=== PATIENT | male | born 1965 | race Caucasian/White ===

== ENCOUNTER 2021-06-12 02:21 | Day surgery (SDC) | payer OTHER, SELFPAY ==
[2021-05-29 09:26] VITALS: BMI 26.5
[2021-06-12 08:07] VITALS: BP 148/91; PULSE 61; RESP 17; TEMP 36.6; O2SAT 100; BMI 27.8
[2021-06-12] MEDS: LACTATED RINGERS 1,000 ML 150 ML IV CONT (08:11)
--- NOTE | 2021-06-12 08:13 | PM.HPGS ---
History of Present Illness History of Present Illness Consent: Risks, benefits, and alternatives have been discussed and questions answered. Patient agrees to proceed with procedure. Chief complaint: francis's esophagus Narrative: Nehemiah Kramer Meng, Jr. is a 56 year old male Who was found to have a short segment of Francis's esophagus 3 years ago. At times when eating a sandwich, he will feels though that the food does not go down and he will need to take a drink of water to help when something is stuck. He also has a painful sensation when this happens, as though he is having a spasm in his esophagus Review of Systems Review of Systems: All systems reviewed & are unremarkable except as noted in HPI and below PMFSH Past Medical History Medical History Barretts esophagus GERD (gastroesophageal reflux disease) Peyronie's disease Family History Family History Father Hypertension Patient's father is in good health Cerebrovascular accident Family history of premature coronary heart disease Sibling Patient's brother is in good health Mother Family history of premature coronary heart disease, Onset Age: 69 Social History Social History Social History: Smoking status: Never smoker Second hand tobacco smoke exposure: No Alcohol intake: current Drinks per week: 4 Substance use: never Substance use type: does not use Living arrangements: with family Additional living arrangements comments: lives with spouse Gender identity (if verbalized by the patient): Male Sexual Orientation (if Verbalized by the Patient): Straight or Heterosexual Spiritual care concerns: No Meds Home Medications and Allergies Home Medications Medication Instructions Recorded Confirmed Type melatonin 10 mg tablet 10 mg PO DAILY 07/17/19 06/12/21 History multivitamin 1 tablet PO DAILY 07/17/19 06/12/21 History pantoprazole 20 mg tablet,delayed 20 mg PO Q12H #180 tablet 03/12/21 06/12/21 Rx release Allergies Allergy/AdvReac Type Severity Reaction Status Date / Time No Known Allergies Allergy Mild Verified 06/12/21 08:06 Vital Signs Vital Signs - 24 hr 06/12/21 08:07 Temperature 36.6 C Pulse Rate 61 Respiratory Rate 17 Blood Pressure 148/91 H Pulse Oximetry 100 Exam Resp: Auscultation: clear to auscultation bilaterally Cardio: Rate: regular rate Rhythm: regular rhythm GI: GI Palp: Yes Soft to palpation and No Tenderness to palpation present (GI) Assessment and Plan Assessment and plan (1) Barretts esophagus: Code(s): K22.70 - Francis's esophagus without dysplasia Status: Acute Assessment and Plan: EGD with possible biopsy or dilatation or cautery.
--- NOTE | 2021-06-12 08:27 | WPDANESEPPF ---
Anes - Initial Pre Proc Eval Procedure: Operation Date: 06/12/21 09:00 Proposed Procedures p Esophagogastroduodenoscopy - Donaldo Laguerre MD Date/Time: 06/12/21 08:27 Surgeon: Donaldo Laguerre MD Pre Op Diagnosis: francis's esophagus Patient Data Age: 56 Gender: M Height: 1.78 m Weight: 87.8 kg Last Vital Signs Temp 36.6 C 06/12/21 08:07 Pulse 61 06/12/21 08:07 Resp 17 06/12/21 08:07 BP 148/91 H 06/12/21 08:07 Pulse Ox 100 06/12/21 08:07 Allergies Allergy/AdvReac Type Severity Reaction Status Date / Time No Known Allergies Allergy Mild Verified 06/12/21 08:06 Home Medications Medication Instructions Recorded Confirmed Type melatonin 10 mg tablet 10 mg PO DAILY 07/17/19 06/12/21 History multivitamin 1 tablet PO DAILY 07/17/19 06/12/21 History pantoprazole 20 mg tablet,delayed 20 mg PO Q12H #180 tablet 03/12/21 06/12/21 Rx release Patient hx anesthesia problems: none Family hx anesthesia problems: none Results Review: All pre-operative results and documents have been reviewed as part of the pre-operative evaluation. [facility] Past Medical History Medical History Barretts esophagus GERD (gastroesophageal reflux disease) Peyronie's disease Family History Family History Father Hypertension Patient's father is in good health Cerebrovascular accident Family history of premature coronary heart disease Sibling Patient's brother is in good health Mother Family history of premature coronary heart disease, Onset Age: 69 Social History Social History Social History: Smoking status: Never smoker Second hand tobacco smoke exposure: No Alcohol intake: current Drinks per week: 4 Substance use: never Substance use type: does not use Living arrangements: with family Additional living arrangements comments: lives with spouse Gender identity (if verbalized by the patient): Male Sexual Orientation (if Verbalized by the Patient): Straight or Heterosexual Spiritual care concerns: No Anes - Eval Final PreProcedure Day of Procedure 06/12/21 08:27 Patient weight: normal Heart: regular rate and rhythm Lungs: clear to auscultation Airway: Mallampati scale class II Neurological: alert and oriented Last oral intake: >/= 8 hours ASA classification: II Emergent: no Anesthetic plan: proceed Anesthesia type and monitoring: general GIVS and standard monitoring Results Review: All pre-operative results and documents have been reviewed as part of the pre-operative evaluation. Informed Consent: The patient's anesthetic plan and its attendant risks and benefits were discussed with the patient/family/POA. Questions were solicited and answers provided to the satisfaction of the patient/family/POA.
[2021-06-12 09:00] VITALS: BP 108/64; PULSE 60; RESP 15; O2SAT 97
[2021-06-12 09:10] VITALS: BP 117/70; PULSE 67; RESP 16; O2SAT 98
[2021-06-12 09:20] VITALS: BP 130/68; PULSE 69; RESP 16; O2SAT 100
--- NOTE | 2021-06-12 09:46 | SUR.PHASEII ---
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
== END 2021-06-12 09:55 | disposition home or self-care (01) ==
PROVIDERS: PCP Family Medicine; Visit Provider Internal Medicine Gastroenterology
PROC: 0DJ08ZZ Inspection of Upper Intestinal Tract, Via Natural or Artificial Opening Endoscopic (ICD-10-PCS; CPT 43235; principal; 2021-06-12 09:00)
DX: K22.2 Esophageal obstruction (principal); K21.00 Gastro-esophageal reflux disease with esophagitis, without bleeding; Z87.19 Personal history of other diseases of the digestive system
CPT/HCPCS: 43249; 88305; 88313; C1726; J2704; J7120

== ENCOUNTER 2023-10-08 06:46 | Day surgery (SDC) | payer OTHER, SELFPAY ==
[2023-09-16 11:29] VITALS: BMI 26.6
--- NOTE | 2023-10-06 14:29 | SUR.PREOP ---
Patient called regarding upcoming procedure. Reviewed preop instructions, appointment times, and procedure prep.
--- NOTE | 2023-10-07 13:59 | P.HP_ITS ---
History of Present Illness History of Present Illness Consent: Risks, benefits, and alternatives have been discussed and questions answered. Patient agrees to proceed with procedure. Chief complaint: History colon polyps Narrative: Nehemiah Kramer Meng, Jr. is a 58 year old male Referred for colon cancer screening. 5 years ago I removed a couple of polyps at least 1 of which was a tubular adenoma. Review of Systems Review of Systems: All systems reviewed & are unremarkable except as noted in HPI and below PMFSH Past Medical History Medical History Barretts esophagus GERD (gastroesophageal reflux disease) Peyronie's disease Family History Family History Father Hypertension Patient's father is in good health Cerebrovascular accident Family history of premature coronary heart disease Carcinoma of colon Sibling Patient's brother is in good health Mother Family history of premature coronary heart disease, Onset Age: 69 Social History Social History Social History: Smoking status: Never smoker Second hand tobacco smoke exposure: No Alcohol intake: current Drinks per week: 2 Substance use: never Substance use type: does not use Do You Feel Safe in your Home?: Yes Lack of Transportation: No Lack of Food: Never True Current Housing: I Have Housing Concerned About Future Housing: No Difficulty Paying Gas/Electric Bills: No Difficulty Paying for Meds: No Currently Unemployed: No Education: Don't Know Difficulty w/ Childcare or Family Care: No Living arrangements: with family Additional living arrangements comments: lives with spouse 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 Gender identity (if verbalized by the patient): Male Sexual Orientation (if Verbalized by the Patient): Straight or Heterosexual Spiritual care concerns: No Meds Home Medications and Allergies Home Medications Medication Instructions Recorded Confirmed Type melatonin 10 mg tablet 10 mg PO DAILY 07/17/19 09/21/23 History multivitamin 1 tablet PO DAILY 07/17/19 09/21/23 History famotidine 20 mg tablet 20 mg PO BID #180 tabs 09/21/23 10/08/23 Rx Allergies Allergy/AdvReac Type Severity Reaction Status Date / Time No Known Allergies Allergy Mild Verified 10/08/23 11:24 Exam Resp: Auscultation: clear to auscultation bilaterally Cardio: Rate: regular rate Rhythm: regular rhythm GI: GI Palp: Yes Soft to palpation and No Tenderness to palpation present (GI) Assessment and Plan Assessment and plan (1) Colon cancer screening: Code(s): Z12.11 - Encounter for screening for malignant neoplasm of colon Status: Acute Assessment and Plan: Colonoscopy with possible biopsy or polypectomy or cautery or injection of substances.
[2023-10-08 11:25] VITALS: BP 149/83; PULSE 59; RESP 20; TEMP 36.2; O2SAT 99; BMI 28.7
[2023-10-08] MEDS: LACTATED RINGERS 1,000 ML 150 ML IV CONT (11:33)
--- NOTE | 2023-10-08 11:40 | WPDANESEPPF ---
Anes - Initial Pre Proc Eval Procedure: Operation Date: 10/08/23 12:30 Proposed Procedures p Colonoscopy - Donaldo Laguerre MD Date/Time: 10/08/23 11:40 Surgeon: Donaldo Laguerre MD Pre Op Diagnosis: History colon polyps Patient Data Age: 58 Gender: M Height: 1.75 m Weight: 88.2 kg Last Vital Signs Temp 97.2 F L 10/08/23 11:25 Pulse 59 L 10/08/23 11:25 Resp 20 10/08/23 11:25 BP 149/83 H 10/08/23 11:25 Pulse Ox 99 10/08/23 11:25 O2 Del Method Room Air 10/08/23 11:25 Allergies Allergy/AdvReac Type Severity Reaction Status Date / Time No Known Allergies Allergy Mild Verified 10/08/23 11:24 Home Medications Medication Instructions Recorded Confirmed Type melatonin 10 mg tablet 10 mg PO DAILY 07/17/19 09/21/23 History multivitamin 1 tablet PO DAILY 07/17/19 09/21/23 History famotidine 20 mg tablet 20 mg PO BID #180 tabs 09/21/23 10/08/23 Rx Patient hx anesthesia problems: none Family hx anesthesia problems: none Results Review: All pre-operative results and documents have been reviewed as part of the pre-operative evaluation. [facility] Past Medical History Medical History Barretts esophagus GERD (gastroesophageal reflux disease) Peyronie's disease Family History Family History Father Hypertension Patient's father is in good health Cerebrovascular accident Family history of premature coronary heart disease Carcinoma of colon Sibling Patient's brother is in good health Mother Family history of premature coronary heart disease, Onset Age: 69 Social History Social History Social History: Smoking status: Never smoker Second hand tobacco smoke exposure: No Alcohol intake: current Drinks per week: 2 Substance use: never Substance use type: does not use Do You Feel Safe in your Home?: Yes Lack of Transportation: No Lack of Food: Never True Current Housing: I Have Housing Concerned About Future Housing: No Difficulty Paying Gas/Electric Bills: No Difficulty Paying for Meds: No Currently Unemployed: No Education: Don't Know Difficulty w/ Childcare or Family Care: No Living arrangements: with family Additional living arrangements comments: lives with spouse Occupation/Education: occupation 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 Gender identity (if verbalized by the patient): Male Sexual Orientation (if Verbalized by the Patient): Straight or Heterosexual Spiritual care concerns: No Anes - Eval Final PreProcedure Day of Procedure 10/08/23 11:40 Patient weight: normal Heart: regular rate and rhythm Lungs: clear to auscultation Airway: Mallampati scale class II Neurological: alert and oriented Last oral intake: >/= 8 hours ASA classification: II Emergent: no Anesthetic plan: proceed Anesthesia type and monitoring: general GIVS and standard monitoring Results Review: All pre-operative results and documents have been reviewed as part of the pre-operative evaluation. Informed Consent: The patient's anesthetic plan and its attendant risks and benefits were discussed with the patient/family/POA. Questions were solicited and answers provided to the satisfaction of the patient/family/POA.
[2023-10-08 12:03] VITALS: BP 114/69; PULSE 57; RESP 16; O2SAT 99
[2023-10-08 12:13] VITALS: BP 110/76; PULSE 57; RESP 21; O2SAT 99
[2023-10-08 12:23] VITALS: BP 121/66; PULSE 55; RESP 15; O2SAT 99
== END 2023-10-08 13:05 | disposition home or self-care (01) ==
PROVIDERS: PCP Family Medicine; Visit Provider Internal Medicine Gastroenterology
PROC: 0DJD8ZZ Inspection of Lower Intestinal Tract, Via Natural or Artificial Opening Endoscopic (ICD-10-PCS; CPT 45378; principal; 2023-10-08 12:30)
DX: Z12.11 Encounter for screening for malignant neoplasm of colon (principal); D12.4 Benign neoplasm of descending colon; D12.0 Benign neoplasm of cecum; K21.9 Gastro-esophageal reflux disease without esophagitis; N48.6 Induration penis plastica
CPT/HCPCS: 45385; 88305; J2704; J7120

== ENCOUNTER 2024-10-19 02:34 | Day surgery (SDC) | payer OTHER, SELFPAY ==
[2024-09-25 11:07] VITALS: BMI 25.4
--- OUTSIDE RECORDS SUMMARY | 2024-10-11 00:38 | XMS_ITS | Continuity of Care Document ---
Author Organization [facility] Address [address] [facility] [address] [place] [address] Phone Care Team Providers Care Software Installer Name Role Phone Ruddyradhamesjhonatan Jose Manuel Unavailable Unavailable Procedures Procedure Date Eye Exam Established Pt Advance Directives Directive Yes / No Effective Date File Name No Information Encounters Encounter Description Practice Location Reason(s) For Visit Diagnoses Date Provider Providers Copied on Encounter [facility], [address], [place], [place], [id number], [place] tel:[phone] [facility] No Information [address] Jose Manuel. [address] [facility] [address], [place], [address], [place]. tel:[phone] Family History Family Member Type Diagnosis Age At Onset No Information Payers Payer name Insurance type Covered libertarian ID Authorcurtisa ilyamohsen(s) [facility] CI [id number] Social History Type Description Quantity Date Captured Comments Sex Male Smoking Status No Information Chief Complaint And Reason For Visit No Information Reason For Referral Reason For Referral No Information History Of Present Illness Encounter Date Complaint History Of Prese nt Illness No Information Functional Status Date Functional Assessmen t No Information Instructions Date Instruction Additional Infor mation No Information Assessments Type Assessment Date No Information Patient Care Teams Name Effective Dates (start - stop) Status Members No Information
--- OUTSIDE RECORDS SUMMARY | 2024-10-11 00:38 | XMS_ITS | Patient Health Summary ---
Author Organization [facility] Address [address] [place] [address] Care Team Providers Care Emergency Care Attendant Name Role Phone Unavailable Primary Care Provider Unavailabl e Note from [facility],non-owned Affiliates and Associated Physician Practices is amultiple site organization consisting of ambulatory clinics and hospital sitesin [place], [place], [place] and [place]. This disclosure is being madepursuant to the Care Everywhere program and may not contain all information available regarding this patient. Last updated 18.[facility] Allergies No known active allergies Medications Be aware that medications may not be up to date on this document. Always verify current medications with the patient. No known medications Active Problems No known active problems Immunizations * FLU VACCINE QUAD IIV4 PF ID(Given 08/04/2016) * INFLUENZA VACCINE, QUADR. (FLUZONE; FLULAVAL; FLUARIX; AFLURIA QUADRIVALENT; 6MO+), 0.5 ML (IIV4)(Given 05/30/2020, 07/05/2019) * iNFLUENZA VACCINE, RECOM-BREWER, QUADR. (FLUBLOCK QUADRIVALENT; 18Y+) (RIV4)(Given 07/04/2018) Social History Tobacco Use Types Packs/Day Years Used Date Smoking Tobacco: Never Assessed Sex and Gender Information Value Date Recorded Sex Assigned at Not on file Gender Identity Not on file Sexual Orientation Not on file
--- OUTSIDE RECORDS SUMMARY | 2024-10-11 00:38 | XMS_ITS | Referral Summary ---
Author Organization [facility] [employer] Address [address] [place] [address] Care Team Providers Care Remote Sensing Technologist Name Role Phone Unavailable Primary Care Provider Unavailabl e Source Comments [facility],non-owned Affiliates and Associated Physician Practices is amultiple site organization consisting of ambulatory clinics and hospital sitesin [place], [place], [place] and [place]. This disclosure is being madepursuant to the Care Everywhere program and may not contain all information available regarding this patient. Last updated 18.[facility] [employer] Allergies No known active allergies Medications Be aware that medications may not be up to date on this document. Always verify current medications with the patient. No known medications Active Problems No known active problems Immunizations Name Administration Dates Next Due FLU VACCINE QUAD IIV4 PF ID 08/04/2016 INFLUENZA VACCINE, QUADR. (F LUZONE; FLULAVAL; FLUARIX; AFLURIA QUADRIVALENT; 6MO+), 0.5 ML (IIV4) 05/30/2020,07/05/2019 iNFLUENZA VACCINE, RECOM-BREWER, QUADR. (FLUBLOCK QUADRIVALENT; 18Y+) (RIV4) 07/04/2018 Social History Tobacco Use Types Packs/Day Years Used Date Smoking Tobacco: Never Assessed Sex and Gender Information Value Date Recorded Sex Assigned at Not on file Gender Identity Not on file Sexual Orientation Not on file Plan of Treatment Not on file
--- OUTSIDE RECORDS SUMMARY | 2024-10-11 00:38 | XMS_ITS | Clinical Summary ---
Author Organization [facility] Address [address] [place] [address] Care Team Providers Care Cashiers Bussers Food Runners Name Role Phone Unavailable Primary Care Provider Unavailabl e Source Comments [facility],non-owned Affiliates and Associated Physician Practices is amultiple site organization consisting of ambulatory clinics and hospital sitesin [place], [place], [place] and [place]. This disclosure is being madepursuant to the Care Everywhere program and may not contain all information available regarding this patient. Last updated 18.[facility] Allergies No known active allergies Medications Be [...] Orientation Not on file Plan of Treatment Health Maintenance Due Date Last Done Comments COLOGUARD (AGES 45-75) - COLON CA SCREENING 1964 COLON MONITORING 1964 COLONOSCOPY - COLON CA SCREENING 1964 CT COLONOGRAPHY - COLON CA SCREENING 1964 Colorectal Cancer Screening 1964 FIT - COLON CA SCREENING 1964 FLEX SIG - COLON CA SCREENING 1964 LIPID TESTING 1964 HIV SCREENING 1979 HEPATITIS C SCREENING 04/21/1982 DTAP/TDAP/TD VACCINES (1 - Tdap) 1983 PNEUMOCOCCAL VACCINE 50+ (1 of 1 - PCV) 2014 ZOSTER VACCINE (1 of 2) 2014 COVID-19 VACCINE (1 - 2023- season) 2024 INFLUENZA VACCINE (#1) 2024 , 07/05/2019, 07/04/2018, Additional history exists DEPRESSION SCREENING 08/23/2024 Respiratory Syncytial Virus (RSV) Vaccine Pt: or over 60 yrs (1 - 1-dose 75+ series) 2039 HEPATITIS B VACCINE Aged Out No longe r eligible based on patient's age to complete this topic HIB VACCINE Aged Out No longer eligi ble based on patient's age to complete this topic HPV VACCINE Aged Out No longer eligi ble based on patient's age to complete this topic MENINGOCOCCAL (Group B) VACCINE Aged Out No longer eligible based on patient's age to complete this topic MENINGOCOCCAL VACCINE Aged Out No naman aram eligible based on patient's age to complete this topic PNEUMOCOCCAL VACCINE Aged Out No long er eligible based on patient's age to complete this topic
--- OUTSIDE RECORDS SUMMARY | 2024-10-19 02:39 | XMS_ITS | Encounter Summary ---
Author Organization [facility] Address [address] [place] [address] Phone Care Team Providers Care Pharmaceutical Process Engineer Name Role Phone Tyra Lou MD Primary Care Provider Encounter Details Date Type Department Care Team (Late st Contact Info) Description 10/26/2019 Telephone [facility] Cardiology [facility] Advanced Medicine 8th [place] [address] [place] [address] Nando Gilman MD [address] [address] [address] [place] [address] Social History Tobacco Use Types Packs/Day Years Used Date Smoking Tobacco: Never Smokeless Tobacco: Never Alcohol Use Standard Drinks/Week Comments Yes 0 (1 standard drink = 0.6 oz pur e alcohol) Sex and Gender Information Value Date Recorded Sex Assigned at Not on file Legal Sex Male 2:39 AM 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
--- OUTSIDE RECORDS SUMMARY | 2024-10-19 02:39 | XMS_ITS | Patient Health Summary ---
Author Organization [facility] [employer] Address [address] [place] [place] [address] Care Team Providers Care Operations/Dispatch Name Role Phone Unavailable Primary Care Provider Unavailabl e Note from [facility],non-owned Affiliates and Associated Physician Practices is amultiple site organization consisting of ambulatory clinics and hospital sitesin [place], [place], [place] and [place]. This disclosure is being madepursuant to the Care Everywhere program and may not contain all information available regarding this patient. Last updated 18.[facility] [employer] Allergies No known active allergies Medications Be [...]
--- OUTSIDE RECORDS SUMMARY | 2024-10-19 02:39 | XMS_ITS | Clinical Summary ---
Author Organization [facility] Address [address] [place] [id number] Care Team Providers Care Flame Hardener Name Role Phone Tyra Lou MD Primary Care Provider Allergies No known active allergies Medications pantoprazole DR (PROTONIX) 40 mg EC tablet Take 20 mg by mouth 2 (two) times a day Active cholecalciferol (VITAMIN D-3) 2,000 unit capsule Take 1,000 Units by mouth daily Active ciclopirox (LOPROX) 0.77 % cream GENTLY MASSAGE INTO AFFECTED NAILS AND SURROUNDING SKIN EVERY DAY 90 g 3 0 Active Additional Information Patient not taking.Reported on 09/29/2021 terbinafine (LamiSIL) 250 mg tablet TAKE 1 TABLET BY MOUTH DAILY 30 tablet 1 Active Additional Information Patient not taking.Reported on 09/29/2021 multivitamin tabletIndicatio ns:Vitamin Deficiency Prevention Take 1 tablet by mouth Active ketoconazole (NIZORAL) 2 % cream Apply to left 4th, 5th interdigital space and 2nd toenail BID 60 g 3 3 Active thymol, bulk, crystals Apply to left 2nd toenail qd 60 g 2 3 Active Active Problems Problem Noted Date Diagnosed Date Pain of foot 08/06/2017 Painful legs and moving toes 06/24/2017 Surgical follow-up care 09/26/2012 Tinea pedis 09/13/2012 Onychomycosis 08/25/2012 Skin benign neoplasm 08/25/2012 Skin infection, bacterial 08/25/2012 Skin neoplasm 08/25/2012 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 Induratio penis plastica 07/02/2010 Osteoarthritis of shoulder 07/10/2009 Surgical History Surgery Date Site/Laterality Comments SHOULDER SURGERY Medical History Medical History Date Comments Encounter for removal of sutures Encounter for removal of sutures - (Added by TW Conv) GERD (gastroesophageal reflux disease) Infectious viral hepatitis Family History Medical History Relation Name Comments Cancer Father Nehemiah Weldon Heart disease Father Nehemiah Weldon Alzheimer's disease Maternal Grandfather Kirt Blackmon am Cancer Mother Willa Weldon Heart attack Mother Willa Weldon Hypertension Mother Willa Weldon Skin cancer Other Skin Cancer - ( Added by TW Conv) Relation Name Status Comments Brother Alive Father Nehemiah Weldon Alive Maternal Grandfather Kirt Peterson Mother Willa Weldon Alive Other Social History Tobacco Use Types Packs/Day Years Used Date Smoking Tobacco: Never Smokeless Tobacco: Never Tobacco Cessation:Counseling Given: Yes Alcohol Use Standard Drinks/Week Comments Yes 0 (1 standard drink = 0.6 oz pur e alcohol) Sex and Gender Information Value Date Recorded Sex Assigned at Not on file Legal Sex Male 2:39 AM INSTRUCTIONAL SUPPORT ASSISTANT Gender Identity Male 12/15/2018 7:18 AM CDT Sexual Orientation Not on file Obstetrics History Last Filed Vital Signs Vital Sign Reading Time Taken Comments Blood Pressure 118/79 09/29/2021 9:13 AM INSTRUCTIONAL SUPPORT ASSISTANT Pulse 67 09/29/2021 9:13 AM INSTRUCTIONAL SUPPORT ASSISTANT Temperature - - Respiratory Rate - - Oxygen Saturation 99% 09/29/2021 9:13 AM INSTRUCTIONAL SUPPORT ASSISTANT Inhaled Oxygen Concentration - - Weight 89.5 kg (197 lb 6.4 oz) 09/29/2021 9:13 A M INSTRUCTIONAL SUPPORT ASSISTANT Height 177.8 cm (5' 10 ) 09/29/2021 9:13 AM INSTRUCTIONAL SUPPORT ASSISTANT Body Mass Index 28.32 09/29/2021 9:13 AM INSTRUCTIONAL SUPPORT ASSISTANT Plan of Treatment Health Maintenance Due Date Last Done Comments Colon Cancer Screening-Colonoscopy 1964 Depression Screening 1964 Hepatitis C Screening 1964 Prostate Cancer Screening-PSA 1964 DTaP/Tdap/Td Vaccine (1 - Tdap) 1975 Hepatitis B Screening 1982 Regular Well Visit/Exam 18-64 1982 Zoster Vaccine (1 of 2) 2014 Influenza Vaccine (#1) 2024 , 07/05/2019, 07/04/2018, Additional history exists Pneumococcal vaccine <65 Aged Out No longer eligible based on patient's age to complete this topic Insurance [facility] CHO[facility] PLUS [facility]US [place] [id number] Care Teams Flame Hardener Relationship Specialty Start Date End Date Tyra Lou MD [address] [facility] [address] [place] [address] PCP - General 03/22/17
--- OUTSIDE RECORDS SUMMARY | 2024-10-19 02:39 | XMS_ITS | Referral Summary ---
Author Organization [facility] Address [address] [place] [id number] Care Team Providers Care Epic Ambulatory Specialists Name Role Phone Tyra Lou MD Primary [...] penis plastica 07/02/2010 Osteoarthritis of shoulder 07/10/2009 Social History Tobacco Use Types Packs/Day Years Used Date Smoking Tobacco: Never Smokeless Tobacco: Never Tobacco Cessation:Counseling Given: Yes Alcohol Use Standard Drinks/Week Comments Yes 0 (1 standard drink = 0.6 oz pur e alcohol) Sex and Gender Information Value Date Recorded Sex Assigned at Not on file Legal Sex Male 2:39 AM PHYSICAL DIRECTOR Gender Identity Male 12/15/2018 7:18 AM CDT Sexual Orientation Not on file Last Filed Vital Signs Vital Sign Reading Time Taken Comments Blood Pressure 118/79 09/29/2021 9:13 AM PHYSICAL DIRECTOR Pulse 67 09/29/2021 9:13 AM PHYSICAL DIRECTOR Temperature - - Respiratory Rate - - Oxygen Saturation 99% 09/29/2021 9:13 AM PHYSICAL DIRECTOR Inhaled Oxygen Concentration - - Weight 89.5 kg (197 lb 6.4 oz) 09/29/2021 9:13 A M PHYSICAL DIRECTOR Height 177.8 cm (5' 10 ) 09/29/2021 9:13 AM PHYSICAL DIRECTOR Body Mass Index 28.32 09/29/2021 9:13 AM PHYSICAL DIRECTOR Plan of Treatment Not on file Insurance [facility] CHOICE PLUS Care Teams Epic Ambulatory Specialists Relationship Specialty Start Date End Date Tyra Lou MD [address] [facility] [address] [place] [phone] PCP - General 03/22/17
--- OUTSIDE RECORDS SUMMARY | 2024-10-19 02:39 | XMS_ITS | Clinical Summary ---
Author Organization [facility] Address [address] [place] [address] Care Team Providers Care Multimedia Assistant Name Role Phone Unavailable Primary Care Provider Unavailabl e Source Comments [facility],non-owned Affiliates and Associated Physician Practices is amultiple site organization consisting of ambulatory clinics and hospital sitesin [place], [place], [place] and [place]. This disclosure is being madepursuant to the Care Everywhere program and may not contain all information available regarding this patient. Last updated 18.[facility] Allergies No known active allergies Medications Be [...]
--- OUTSIDE RECORDS SUMMARY | 2024-10-19 02:39 | XMS_ITS | Referral Summary ---
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 This disclosure is being madepursuant to the Care Everywhere program and may not contain all information available regarding this patient. Last updated 18.[email or web address] Allergies No known active allergies Medications Be [...]
--- OUTSIDE RECORDS SUMMARY | 2024-10-19 02:39 | XMS_ITS | Continuity of Care Document ---
Author Organization [facility] Address [address] [facility] [address] [place] [address] Phone Care Team Providers Care Case Finisher Name Role Phone Ruddyradhamesjhonatan Jose Manuel Unavailable Unavailable Procedures Procedure Date Eye Exam Established Pt Advance Directives Directive Yes / No Effective Date File Name No Information Encounters Encounter Description Practice Location Reason(s) For Visit Diagnoses Date Provider Providers Copied on Encounter [facility], [address], [place], [place], [id number], [place] tel:[phone] [facility] No Information [address] Jose Manuel. [address] [facility] [address], [place], [address], [place]. tel:[phone] Family History Family Member Type Diagnosis Age At Onset No Information Payers Payer name Insurance type Covered constitution party ID Authorcurtisa ilyamohsen(s) [facility] CI [id number] Social History Type Description Quantity Date Captured [...]
[2024-10-19 11:21] VITALS: BP 143/83; PULSE 56; RESP 14; TEMP 36.1; O2SAT 99
--- NOTE | 2024-10-19 11:28 | WPDANESEPPF ---
Anes - Initial Pre Proc Eval Procedure: Operation Date: 10/19/24 12:00 Proposed Procedures p Esophagogastroduodenoscopy - Kirby Burnham MD Date/Time: 10/19/24 11:28 Surgeon: Kirby Burnham MD Pre Op Diagnosis: Garcia's esophagus Patient Data Age: 59 Gender: M Height: 1.78 m Weight: 86.3 kg Last Vital Signs Temp 96.9 F L 10/19/24 11:21 Pulse 56 L 10/19/24 11:21 Resp 14 10/19/24 11:21 BP 143/83 H 10/19/24 11:21 Pulse Ox 99 10/19/24 11:21 O2 Del Method Room Air 10/19/24 11:21 Allergies Allergy/AdvReac Type Severity Reaction Status Date / Time No Known Allergies Allergy Mild Verified 10/19/24 11:19 Home Medications ?Medication ?Instructions ?Recorded ?Confirmed ?Type omeprazole 20 mg capsule,delayed 20 mg PO DAILY 04/07/24 10/19/24 History release colestipol 1 gram tablet 1 g PO BID 3 months #180 tabs 07/18/24 10/19/24 Rx Patient hx anesthesia problems: none Family hx anesthesia problems: none Results Review: All pre-operative results and documents have been reviewed as part of the pre-operative evaluation. [facility] Past Medical History Medical History Intermittent diarrhea Bloating Lower abdominal pain Peyronie's disease Barretts esophagus GERD (gastroesophageal reflux disease) Family History Family History Father Hypertension Patient's father is in good health Cerebrovascular accident Family history of premature coronary heart disease Carcinoma of colon Sibling Patient's brother is in good health Mother Family history of premature coronary heart disease, Onset Age: 69 Social History Social History Social History: Smoking status: Never smoker Second hand tobacco smoke exposure: No Alcohol intake: current Drinks per week: 2 Substance use: never Substance use type: does not use Do You Feel Safe in your Home?: Yes Lack of Transportation: No Lack of Food: Never True Current Housing: I Have Housing Concerned About Future Housing: No Difficulty Paying Gas/Electric Bills: No Difficulty Paying for Meds: No Currently Unemployed: No Education: Don't Know Difficulty w/ Childcare or Family Care: No Living arrangements: with family Additional living arrangements comments: lives with spouse 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/Education: 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 Gender identity (if verbalized by the patient): Male Sexual Orientation (if Verbalized by the Patient): Straight or Heterosexual Spiritual care concerns: No Anes - Eval Final PreProcedure Day of Procedure 10/19/24 11:28 Patient weight: overweight Lungs: normal air movement Airway: Mallampati scale Neurological: alert and oriented Last oral intake: >/= 8 hours ASA classification: II Emergent: no Anesthetic plan: proceed Anesthesia type and monitoring: general GIVS and standard monitoring Results Review: All pre-operative results and documents have been reviewed as part of the pre-operative evaluation. Remote hx of SVT in the past, none since 2019. 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 Informed Consent: The patient's anesthetic plan and its attendant risks and benefits were discussed with the patient/family/POA. Questions were solicited and answers provided to the satisfaction of the patient/family/POA.
[2024-10-19] MEDS: LACTATED RINGERS 1,000 ML 150 ML IV CONT (11:31)
--- NOTE | 2024-10-19 11:57 | PM.HPGS ---
History of Present Illness History of Present Illness Consent: Risks, benefits, and alternatives have been discussed and questions answered. Patient agrees to proceed with procedure. Chief complaint: Francis's esophagus Narrative: Nehemiah Kramer Meng, Jr. is a 59 year old male with francis's however last EGD 2020 without it, he is using ppi most of days but says that does not have much of GERD symptom Review of Systems Review of Systems: All systems reviewed & are unremarkable except as noted in HPI and below PMFSH Past Medical History Medical History Intermittent diarrhea Bloating Lower abdominal pain Peyronie's disease Barretts esophagus GERD (gastroesophageal reflux disease) Family History Family History Father Hypertension Patient's father is in good health Cerebrovascular accident Family history of premature coronary heart disease Carcinoma of colon Sibling Patient's brother is in good health Mother Family history of premature coronary heart disease, Onset Age: 69 Social History Social History Social History: Smoking status: Never smoker Second hand tobacco smoke exposure: No Alcohol intake: current Drinks per week: 2 Substance use: never Substance use type: does not use Do You Feel Safe in your Home?: Yes Lack of Transportation: No Lack of Food: Never True Current Housing: I Have Housing Concerned About Future Housing: No Difficulty Paying Gas/Electric Bills: No Difficulty Paying for Meds: No Currently Unemployed: No Education: Don't Know Difficulty w/ Childcare or Family Care: No Living arrangements: with family Additional living arrangements comments: lives with spouse Occupation/Education: occupation 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 Gender identity (if verbalized by the patient): Male Sexual Orientation (if Verbalized by the Patient): Straight or Heterosexual Spiritual care concerns: No Meds Home Medications and Allergies Home Medications ?Medication ?Instructions ?Recorded ?Confirmed ?Type omeprazole 20 mg capsule,delayed 20 mg PO DAILY 04/07/24 10/19/24 History release colestipol 1 gram tablet 1 g PO BID 3 months #180 tabs 07/18/24 10/19/24 Rx Allergies Allergy/AdvReac Type Severity Reaction Status Date / Time No Known Allergies Allergy Mild Verified 10/19/24 11:19 Vital Signs Vital Signs - 24 hr 10/19/24 11:21 Temperature 96.9 F L Pulse Rate 56 L Respiratory Rate 14 Blood Pressure 143/83 H Pulse Oximetry 99 Oxygen Delivery Room Air Exam Const: General: comfortable and no acute distress HENMT: Face/Nose/Sinus: Normal nares present Eyes: General: appearance normal, both eyes and all related structures Neck: Neck: no JVD Resp: Auscultation: clear to auscultation bilaterally Cardio: Rate: regular rate Rhythm: regular rhythm GI: Inspection: non-distended GI Palp: Yes Soft to palpation Skin: General skin exam: normal color Neuro: General: gait normal Speech: normal speech Extrem: General: normal to inspection Psych: Mental Status: mental status grossly normal Assessment and Plan Assessment and plan (1) GERD (gastroesophageal reflux disease): Qualifiers: Esophagitis presence: without esophagitis Qualified Code(s): K21.9 - Gastro-esophageal reflux disease without esophagitis Code(s): K21.9 - Gastro-esophageal reflux disease without esophagitis Status: Acute Assessment and Plan: egd (2) Barretts esophagus: Qualifiers: Francis's esophagus type: without dysplasia Qualified Code(s): K22.70 - Francis's esophagus without dysplasia Code(s): K22.70 - Francis's esophagus without dysplasia Status: Acute
[2024-10-19 12:09] VITALS: BP 130/77; PULSE 54; RESP 15; O2SAT 99
[2024-10-19 12:19] VITALS: BP 144/94; PULSE 57; RESP 16; O2SAT 98
[2024-10-19 12:29] VITALS: BP 155/77; PULSE 58; RESP 20; O2SAT 100
== END 2024-10-19 12:40 | disposition home or self-care (01) ==
PROVIDERS: PCP Family Medicine; Referring Provider Nurse Practitioner Family; Visit Provider Internal Medicine Gastroenterology
PROC: 0DJ08ZZ Inspection of Upper Intestinal Tract, Via Natural or Artificial Opening Endoscopic (ICD-10-PCS; CPT 43239; principal; 2024-10-19 12:00)
DX: K21.00 Gastro-esophageal reflux disease with esophagitis, without bleeding (principal); Z87.19 Personal history of other diseases of the digestive system
CPT/HCPCS: 43239; 88305; J2003; J2704; J7120